=== PATIENT | female | born 1960 | race Caucasian/White ===

== ENCOUNTER 2024-03-06 20:54 | Emergency (ER) | payer MEDICARE ==
[~2024-03-06] VITALS: Ht 167.6 cm; Wt 92.1 kg
[2024-03-06 21:16] VITALS: PULSE 78; RESP 18; TEMP 98.3
[2024-03-06] MEDS ORDERED: IBUPROFEN200 MG PO (21:44)
[2024-03-06] MEDS ORDERED: ACETAMINOPHEN-1 EAC4 PO (21:44)
[2024-03-06] MEDS ORDERED: ULTRAM 50MG50 MG PO (22:09)
[2024-03-06 22:30] VITALS: PULSE 78; RESP 18; TEMP 98.3; O2SAT 97
== END 2024-03-06 22:30 | disposition home or self-care (01) ==
LOC: FSED 21:22
DX: S82.61XA Displaced fracture of lateral malleolus of right fibula, initial encounter for closed fracture (principal); X50.1XXA Overexertion from prolonged static or awkward postures, initial encounter; Y92.89 Other specified places as the place of occurrence of the external cause; M21.371 Foot drop, right foot; I10 Essential (primary) hypertension; E03.9 Hypothyroidism, unspecified; F41.9 Anxiety disorder, unspecified
CPT/HCPCS: 99283